=== PATIENT | male | born 1975 | race Caucasian/White ===

== ENCOUNTER 2017-09-04 20:43 | Emergency (ER) | payer BC, OTHER ==
[2017-09-05] MEDS: HYDROCODONE/APAP (5/325) TAB PO (01:36)
== END 2017-09-05 02:06 | disposition home or self-care (01) ==
LOC: FTE 20:43
DX: S52.122A Displaced fracture of head of left radius, initial encounter for closed fracture (principal); W18.39XA Other fall on same level, initial encounter; Y92.9 Unspecified place or not applicable
CPT/HCPCS: 29125; 73080-LT; 73090; 73110-LT; 99283-25